=== PATIENT | female | born 1955 | race Caucasian/White ===

== ENCOUNTER 2024-02-05 23:30 | Emergency (ER) | payer MEDICARE, BC ==
[~2024-02-05] VITALS: Ht 167.6 cm; Wt 64.0 kg
[2024-02-05 23:41] VITALS: BP 134/113; PULSE 56; RESP 16; O2SAT 99
== END 2024-02-05 23:59 | disposition home or self-care (01) ==
LOC: ER 23:30 → EDBD 23:30 → ER 23:59
DX: F10.129 Alcohol abuse with intoxication, unspecified (principal); I10 Essential (primary) hypertension; F41.9 Anxiety disorder, unspecified; R55 Syncope and collapse; Y90.9 Presence of alcohol in blood, level not specified
CPT/HCPCS: 93005; 99283